=== PATIENT | female | born 1950 | race Caucasian/White ===

== ENCOUNTER 2016-11-22 00:14 | Emergency (ER) | payer OTHER, BC ==
[~2016-11-22 00:14] MED LIST: INSDGI SC; INSUINJ14 SC; LISI10TA PO; PRLSR20 PO; ROSU40TA PO; SERT-234 PO; SITA100T3 PO
[2016-11-22] MEDS ORDERED: DiphenhydrAMINE HCL 50 MG/ML VIAL IV STA (00:32)
[2016-11-22] MEDS ORDERED: METHYLPREDNISOLONE 125 MG VIAL IV STA (00:32)
[2016-11-22] MEDS ORDERED: FAMOTIDINE 20MG/102 ML D5W IV STA (00:32)
--- NOTE | 2016-11-22 00:34 | EMERGENCY ROOM VISIT NOTE ---
History Report prepared by Ning: Ade Mackay Under the Supervision of: Dr. Jose Canales D.O. First contact with patient: 00:21 Chief Complaint: ALLERGIC REACTION Stated Complaint: SWOLLEN TONGUE, LIPS, HARD TO SWALLOW - ALLERGIC R History of Present Illness The patient is a 66 year old female who presents to the Emergency Room with complaints of persistent tongue swelling starting yesterday. She was at Urgent Care yesterday for abdominal pain and she was given new medications. After she took them, her tongue started swelling up. Her lip is also swelling. She called [facility] today and they told her to take Benadryl. She took Benadryl today at 1800 and slept for around 6 hours. When she woke up, her lips were more swollen and tingling. Her tongue is also still swollen. She is able to breathe, but having difficulty swallowing. She has been on Lisinopril for a long time. She took none of her medications today because of her swelling. Source of History: patient Onset: yesterday Position: other (tongue) Quality: other (swelling) Timing: other (persistent) Note: Pt reports lip swelling, difficulty swallowing. Review of Systems See HPI for pertinent positives and negatives. A total of ten systems were reviewed and were otherwise negative. Past Medical & Surgical Medical Problems: (1) DM (diabetes mellitus) (2) GERD (gastroesophageal reflux disease) Family History Diabetes mellitus FH: cancer Hypertension Social History Smoking Status: Never Smoker Marital Status: Housing Status: lives with family Occupation Status: employed Current/Historical Medications Scheduled Insulin Aspart Penfill (Novolog Penfill), 5-6 UNITS SC AC Insulin Glargine (Lantus), 35 UNITS SC HS Lisinopril (Prinivil), 10 MG PO DAILY Omeprazole (Prilosec), 20 MG PO DAILY Rosuvastatin Calcium (Crestor), 40 MG PO DAILY Sertraline (Zoloft), 150 MG PO DAILY Sitagliptin Phosphate (Januvia), 100 MG PO DAILY Allergies Coded Allergies: Ibuprofen (Unverified Allergy, Mild, 03/15/15) Morphine (Unverified Allergy, Mild, 03/15/15) Aspirin (Verified Allergy, Unknown, UNKNOWN, 03/15/15) NSAIDs (Verified Allergy, Unknown, UNKNOWN, 03/15/15) Sulfa Drugs (Unverified Allergy, Unknown, 03/15/15) Physical Exam Vital Signs Date Time Temp Pulse Resp B/P Pulse Ox O2 Delivery O2 Flow Rate FiO2 11/22/16 01:34 65 161/75 98 Room Air 11/22/16 00:48 74 18 157/74 100 Room Air 11/22/16 00:27 100 Room Air 11/22/16 00:21 36.7 87 22 213/106 100 Room Air Physical Exam GENERAL: Awake, alert, well-appearing, in no distress HENT: Normocephalic, atraumatic. Mild angioedema, phonating, swallowing, speaking in full sentences. EYES: Normal conjunctiva. Sclera non-icteric. NECK: Supple. No nuchal rigidity. FROM. No JVD. RESPIRATORY: Clear to auscultation. CARDIAC: Regular rate, normal rhythm. Extremities warm and well perfused. Pulses equal. ABDOMEN: Soft, non-distended. No tenderness to palpation. No rebound or guarding. No masses. RECTAL: Deferred. MUSCULOSKELETAL: Chest examination reveals no tenderness. The back is symmetrical on inspection without obvious abnormality. There is no CVA tenderness to palpation. No joint edema. LOWER EXTREMITIES: Calves are equal size bilaterally and non-tender. No edema. No discoloration. NEURO: Normal sensorium. No sensory or motor deficits noted. SKIN: No rash or jaundice noted. PSYCH: Extremely anxious. Medical Decision & Procedures Laboratory Results Test 11/22/16 00:55 Bedside Glucose 233 mg/dl (70-90) Laboratory results reviewed by me Medications Administered Medications (Trade) Dose Ordered Sig/Jerad Route Start Time Stop Time Status Last Admin Dose Admin Diphenhydramine HCl (Benadryl Inj) 25 mg NOW STAT IV 11/22/16 00:32 11/22/16 00:34 DC 11/22/16 00:41 25 MG Methylprednisolone Sodium Succinate (Solu-Medrol IV) 125 mg NOW STAT IV 11/22/16 00:32 11/22/16 00:34 DC 11/22/16 00:41 125 MG Famotidine (Pepcid 20mg/100 ml) 20 mg ONE STAT IV 11/22/16 00:32 11/22/16 00:34 DC 11/22/16 00:41 20 MG ED Course 0023: The patient was evaluated in room A9B. A complete history and physical exam was performed. 0032: Famotidine 20 mg IV, Solu-Medrol IV 125 mg IV, Benadryl Inj 25 mg IV. 0135: I reevaluated the patient. She is resting comfortably, in no significant distress, no significant angioedema. I discussed results and discharge instructions: she verbalized understanding and agreement. The patient is ready for discharge. Medical Decision Differential diagnoses include but are not limited to; allergic reaction, angioedema, GABRIELLE inhibitor induced angioedema, anxiety. Medication Reconciliation: I attest that I have personally reviewed the patient' s current medication list. Blood pressure screening: Patient was found to have an elevated blood pressure and was referred to their primary doctor for recheck and further treatment. Patient on reexamination resting in no distress blood pressure 160/75 she has no difficulty swallowing and there is no significant angioedema on reexamination. I've also discussed the evaluation with the patient's at bedside Impression Primary Impression: Allergic reaction Scribe Attestation The scribe's documentation has been prepared under my direction and personally reviewed by me in its entirety. I confirm that the note above accurately reflects all work, treatment, procedures, and medical decision making performed by me. Departure Information Dispostion Home / Self-Care Referrals Nathalia Saleh M.D. (PCP) Patient Instructions ED Allergic Reaction General Other, My [facility] Additional Instructions Please stop taking your lisinopril until follow-up with your primary care physician
[2016-11-22 01:57] VITALS: BP 161/75; PULSE 65; TEMP 36.7; O2SAT 98
== END 2016-11-22 01:58 | disposition home or self-care (01) ==
LOC: C.EDB 00:16 → C.EDA 01:58
DX: T78.40XA Allergy, unspecified, initial encounter (principal); X58.XXXA Exposure to other specified factors, initial encounter; Z79.899 Other long term (current) drug therapy; Z79.4 Long term (current) use of insulin; E11.9 Type 2 diabetes mellitus without complications; K21.9 Gastro-esophageal reflux disease without esophagitis; Z83.3 Family history of diabetes mellitus; Z82.49 Family history of ischemic heart disease and other diseases of the circulatory system; Z80.9 Family history of malignant neoplasm, unspecified

== ENCOUNTER 2016-12-20 09:14 | Emergency (ER) | payer OTHER, BC ==
[~2016-12-20] VITALS: Ht 167.6 cm; Wt 80.7 kg
[2016-12-20 09:21] VITALS: TEMP 36.5; Ht 167.6 cm; Wt 80.7 kg
[2016-12-20 09:27] VITALS: O2SAT 100
[2016-12-20] MEDS ORDERED: LORAZEPAM 0.5 MG TAB SL STA (09:42)
[2016-12-20] MEDS ORDERED: NVLG SQ (10:32)
[2016-12-20] MEDS ORDERED: INSDGI SC (10:32)
[2016-12-20] MEDS ORDERED: FAMO20TA11 PO (10:33)
[2016-12-20] MEDS ORDERED: VENL37.593 PO (10:33)
[2016-12-20 11:42] VITALS: BP 135/71; PULSE 70; O2SAT 100
--- NOTE | 2016-12-20 12:31 | EMERGENCY ROOM VISIT NOTE ---
History Report prepared by Ning: Abimbola Rojas Under the Supervision of: Dr. Jasen Parikh M.D. First contact with patient: 09:34 Chief Complaint: ALLERGIC REACTION Stated Complaint: ALLERGIC REACTION Nursing Triage Summary: pt was at dentist received epi and is allergic. reports she shakes with epi denies any sob or throat swelling History of Present Illness The patient is a 66 year old female who presents to the Emergency Room with complaints of constant allergic reaction symptoms from receiving epinephrine that occurred 90 minutes prior to arrival. The patient states that she was at the dentist for a root canal. She saw Dr. Kumar today. She was given 2 shots of epinephrine, which she states she is allergic to. The patient experiences shakes when she is given epinephrine. She states that this happened to her before. She states that she felt good before she went to the dentist. The patient notes that she feels fatigued from the continuous shaking. Pt denies LOC , headache, fevers, chills, diaphoresis, visual changes, neck pain, chest pain, breathing difficulties, nausea, vomiting, abdominal pain, back pain, melena, hematochezia, urinary symptoms, numbness, weakness, cramping, lymphadenopathy, itching, rash, or other complaints. 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 Review of Systems See HPI for pertinent positives and negatives. A total of ten systems were reviewed and were otherwise negative. Past Medical & Surgical Medical Problems: (1) DM (diabetes mellitus) (2) Food impaction of esophagus (3) GERD (gastroesophageal reflux disease) Family History Diabetes mellitus FH: cancer Hypertension Social History Smoking Status: Never Smoker Marital Status: Housing Status: lives with family Occupation Status: employed Current/Historical Medications Scheduled Famotidine (Pepcid), 20 MG PO DAILY Insulin Aspart (Novolog), SQ UD Insulin Glargine (Lantus), 35-40 UNITS SC QPM Lisinopril (Prinivil), 10 MG PO DAILY Rosuvastatin Calcium (Crestor), 40 MG PO DAILY Sertraline (Zoloft), 150 MG PO DAILY Sitagliptin Phosphate (Januvia), 100 MG PO DAILY Venlafaxine Hcl (Venlafaxine Extended Rel), 37.5 MG PO DAILY Allergies Coded Allergies: Ibuprofen (Unverified Allergy, Mild, 12/20/16) Morphine (Unverified Allergy, Mild, 12/20/16) Aspirin (Verified Allergy, Unknown, UNKNOWN, 12/20/16) Caffeine (Unverified Allergy, Unknown, ., 12/20/16) NSAIDs (Verified Allergy, Unknown, UNKNOWN, 12/20/16) Sulfa Drugs (Unverified Allergy, Unknown, 12/20/16) Physical Exam Vital Signs Date Time Temp Pulse Resp B/P (MAP) Pulse Ox O2 Delivery O2 Flow Rate FiO2 12/20/16 11:42 70 20 135/71 100 12/20/16 10:21 71 20 131/89 100 Room Air 12/20/16 09:27 100 Room Air 12/20/16 09:24 82 12/20/16 09:21 36.5 84 22 171/96 98 Room Air Physical Exam GENERAL: Awake, alert, well-appearing, in no distress HENT: Normocephalic, atraumatic. Oropharynx unremarkable. EYES: Normal conjunctiva. Sclera non-icteric. NECK: Supple. No nuchal rigidity. FROM. No JVD. RESPIRATORY: Clear to auscultation. CARDIAC: Regular rate, normal rhythm. Extremities warm and well perfused. Pulses equal. ABDOMEN: Soft, non-distended. No tenderness to palpation. No rebound or guarding. No masses. RECTAL: Deferred. MUSCULOSKELETAL: Chest examination reveals no tenderness. The back is symmetrical on inspection without obvious abnormality. There is no CVA tenderness to palpation. No joint edema. LOWER EXTREMITIES: Calves are equal size bilaterally and non-tender. No edema. No discoloration. NEURO: Normal sensorium. No sensory or motor deficits noted. SKIN: No rash or jaundice noted. PSYCH: Very anxious, uncomfortable appearing. Medical Decision & Procedures Medications Administered Medications (Trade) Dose Ordered Sig/Jerad Route Start Time Stop Time Status Last Admin Dose Admin Lorazepam (Ativan Tab) 0.5 mg NOW STAT SL 12/20/16 09:42 12/20/16 09:43 DC 12/20/16 09:46 0.5 MG ECG Indication: other (allergic reaction) Rate (beats per minute): 80 Rhythm: normal sinus Findings: nonspecific-ST abn Change: no significant change (from 07/09/13) ED Course 0940: The patient was evaluated in room A11. A complete history and physical exam was performed. 0942: Ativan Tab 0.5 mg SL. 1009: I checked on the patient and she is feeling better. 1119: I reevaluated the patient and she is feeling much better, 1124: I reevaluated the patient. Discussed results and discharge instructions: She verbalized understanding and agreement. The patient is ready for discharge. Medical Decision Medication Reconciliation: I attest that I have personally reviewed the patient' s current medication list Patient was found to have a slightly elevated blood pressure due to circumstances. I do not believe that the patient requires hypertension monitoring. Prior records/ancillary studies reviewed. Triage Nursing notes reviewed and agree them. The patient's history was concerning for possible allergic reaction. Differential diagnosis: Etiologies such as adverse reaction, allergic reaction, anaphylaxis, anxiety, as well as others were entertained. Physical examination: As above. No rash or urticaria. Airway patent. ER treatment provided: Continuous cardiac monitoring Ativan 0.5 mg sublingual On reassessment the patient felt better. Diagnostic interpretation by me: ECG revealed a normal rhythm. No change from prior. It appears the patient had an adverse reaction to epinephrine which he said she has had in the past. The above treatment did well to reverse the symptoms. After prolonged monitoring and frequent reassessments the patient did very well and symptoms resolved. By the evaluation outlined above emergent etiologies such as airway compromise, Fernando-Jose syndrome, toxic epidermal necrolysis, erythema multiforme, complications, as well as others were deemed relatively unlikely. The patient was informed about the findings as listed above. All questions were answered and she was pleased with the treatment. Return instructions were outlined and the patient was discharged in stable condition. Outpatient prescription management: None Referral: The patient was referred back to her primary care physician for follow-up in 2- 3 days for a recheck of the current condition. Impression Primary Impression: Adverse reaction to drug Scribe Attestation The scribe's documentation has been prepared under my direction and personally reviewed by me in its entirety. I confirm that the note above accurately reflects all work, treatment, procedures, and medical decision making performed by me. Departure Information Dispostion Home / Self-Care Referrals Nathalia Saleh M.D. (PCP) Forms HOME CARE DOCUMENTATION FORM, IMPORTANT VISIT INFORMATION Patient Instructions My [facility] Additional Instructions DO NOT drive, drink alcohol, operate machinery, or perform dangerous activities today. You were given medications in the ER that can affect your ability to safely function or operate a vehicle. Diphenhydramine(Benadryl) 25mg: use 25 to 50 mg every six hours for swelling, itching, or hives as needed. This medication is sedating and will cause drowsiness. Avoid alcohol, operating machinery or dangerous equipment, working on ladders or roofs, DRIVING, or situations where being under the influence may be dangerous. Continue current medications. Return to the emergency department for worsening of your rash, swelling of your face, lips, tongue, or throat, difficulty breathing, vomiting, or as needed. Follow-up with your primary care physician in 2 to 3 days for a recheck of your current condition.
== END 2016-12-20 11:44 | disposition home or self-care (01) ==
LOC: EDBD 09:14 → C.EDA 09:16
DX: T50.905A Adverse effect of unspecified drugs, medicaments and biological substances, initial encounter (principal); E11.9 Type 2 diabetes mellitus without complications; K21.9 Gastro-esophageal reflux disease without esophagitis; Z79.4 Long term (current) use of insulin; Z79.899 Other long term (current) drug therapy; Z88.2 Allergy status to sulfonamides; Z88.5 Allergy status to narcotic agent; Z88.6 Allergy status to analgesic agent; Z88.8 Allergy status to other drugs, medicaments and biological substances; Z83.3 Family history of diabetes mellitus; Z80.9 Family history of malignant neoplasm, unspecified; Z82.49 Family history of ischemic heart disease and other diseases of the circulatory system

== ENCOUNTER 2018-12-17 13:19 | Observation (INO) ==
--- OUTSIDE RECORDS SUMMARY | 2018-12-17 13:22 | External Medical Summary | Continuity of Care Document ---
:1950 Author Name Doni Hitchcock Address Unavailable Unavailable , Care Team Providers Name Role Phone Baudilio Andrade [email or web address] [place], NO Unavailable Unavailable Unavailable Unavailable Unavailable Assessments Assessed Problems:Cystocele, midlineRectoceleDepressionHypercholesterolemiaType 2 diabetes mellitusMenopausal symptoms Problems Rectocele (618.04) (N81.6) Hypercholesterolemia (272.0) (E78.00) Cystocele, midline (618.01) (N81.11) Menopausal symptoms (627.2) (N95.1) Depression (311) (F32.9) Type 2 diabetes mellitus (250.00) (E11.9) Allergies and Adverse Reactions Aspirin TABS (Allergy) Sulfa Drugs (Allergy) Medications Januvia TABS Refills: 0 Zoloft TABS Refills: 0 Crestor 10 MG Oral Tablet Refills: 0 Lisinopril TABS Refills: 0 Lantus SOLN Refills: 0 NovoLOG SOLN Refills: 0 Premarin 0.3 MG Oral Tablet; one tablet by mouth daily as directed by Coretta Persaud Start: 29-Oct-2012 Quantity: 30 Refills: 12 Procedures History of Total Abdominal Hysterectomy With Removal Of Both Status: Completed Ovaries History of Appendectomy Status: Complete d History of Cholecystectomy Status: Compl eted History of Cardiovascular Stress Test St atus: Completed Immunizations Immunizations not documented Social History - Smoking Status Never smoker Interventions Medication ChangesPremarin 0.3 MG Oral Tablet - Start Plan of Treatment Planned Observations Planned Goals not documented Results No Known Results Results not documented Encounters Appointment; Steven Andrade M.D. 29-Oct-2012 10:00 Encounter Diagnosis: Problem not documented
[2018-12-17] MEDS ORDERED: DEXTROSE 50% 50 ML SYRINGE IV STA (13:29)
[2018-12-17 13:41] LABS: Basophils # (auto) 0.04 K/uL (0-0.2); Basophils % (auto) 0.4 %; Eosinophils # (auto) 0.18 K/uL (0-0.5); Hematocrit (blood only) 40.4 % (37-47); Hemoglobin 13.9 g/dL (12.0-16.0); Immature Granulocytes # (auto) 0.03 K/uL (0.00-0.02); Immature Granulocytes % (auto) 0.3 %; Lymphocytes # (auto) 2.05 K/uL (1.2-3.4); Lymphocytes % (auto) 22.9 %; Mean Corpuscular Hgb Conc 34.4 g/dL (32-36); Mean Corpuscular Volume 84.2 fL (80-100); Mean Platelet Volume 10.9 fL (7.4-10.4); Monocytes # (auto) 0.55 K/uL (0.11-0.59); Monocytes % (auto) 6.1 %; Neutrophils # (auto) 6.11 K/uL (1.4-6.5); Neutrophils % (auto) 68.3 %; Platelet Count 236 K/uL (130-400); RDW Coefficient of Variation 13.3 % (11.5-14.5); RDW Standard Deviation 40.4 fL (36.4-46.3); White Blood Count 8.96 K/uL (4.8-10.8)
[2018-12-17 13:52] LABS: Partial Thromboplastin Ratio 0.9; Partial Thromboplastin Time 23.7 Seconds (21.0-31.0); Prothrombin Time 9.8 Seconds (9.0-12.0)
[2018-12-17 13:57] LABS: Alanine Aminotransferase 13 U/L (12-78); Albumin Level 3.9 gm/dl (3.4-5.0); Aspartate Aminotransferase 8 U/L (15-37); BUN Creatinine Ratio 25.8 (10-20); Blood Urea Nitrogen 18 mg/dl (7-18); Calcium 9.6 mg/dl (8.5-10.1); Carbon Dioxide 25 mmol/L (21-32); Chloride 104 mmol/L (98-107); Creatinine Clr Calc Pharmacy 81.7 ml/min; Est GFR (African American) 102.2; Est GFR (Non-African American) 88.2; Glucose 86 mg/dl (70-99); Potassium 2.9 mmol/L (3.5-5.1); Sodium 138 mmol/L (136-145)
[2018-12-17] MEDS ORDERED: ASPIRIN 81 MG ECTAB PO STA (14:00)
[2018-12-17 14:02] LABS: Albumin Globulin Ratio 1.1 (0.9-2); Alkaline Phosphatase 107 U/L (45-117); Bilirubin,Total 0.5 mg/dl (0.2-1); Globulin 3.6 gm/dl (2.5-4.0); Total Protein 7.5 gm/dl (6.4-8.2); Troponin I < 0.015 ng/ml (0-0.045)
--- NOTE | 2018-12-17 14:03 | Pre Anesthesia Assessment ---
Date of Service December 17, 2018 Pre Sedation Assessment Vital Signs Temp Pulse Resp BP Pulse Ox 12/17/18 13:46 71 23 144/77 H 99 12/17/18 13:34 36.7 C 74 22 133/67 99 12/17/18 13:32 99 Cardiovascular + regular rate and + regular rhythm + S1 normal, + S2 normal and + murmur (Grade 1/6 systolic); no gallop and no rub no JVD Respiratory normal respiratory effort, lungs clear to auscultation Pre-Sedation Airway Assessment Smoking Status: Never smoker Hx Sleep Apnea: No Hx Difficult Intubation: No Short, Thick Neck: No Mallampati Class: II NPO Status Date of Last Intake of Fluids: 12/17/18 Time of Last Intake of Fluids: 07:00 Last Oral Intake of Fluids Comment: Sips with meds Date of Last Intake of Solid Food: 12/16/18 Time of Last Intake of Solid Foods: 20:02 Notes The planned sedation has been discussed with the patient. Informed Consent was obtained. I have identified the patient, determined the appropriateness of sedation and have assessed the patient immediately prior to the procedure. All medicine(s) and interventions are by my order.
--- NOTE | 2018-12-17 14:07 | XRay Report ---
XR chest 1V portable CLINICAL HISTORY: 68 years-old Female presenting with Chest Pain. TECHNIQUE: Portable upright AP view of the chest was obtained. COMPARISON: 03/15/2015. FINDINGS: Atherosclerosis of the aortic arch. Cardiac silhouette normal in size. Bandlike opacity at the left l shabnam base. No other focal opacity. No large effusion or pneumothorax. Degenerative changes of the thor acic spine. Upper abdomen normal. IMPRESSION: 1. Left basilar atelectasis or scarring. No convincing evidence of acute cardiopulmonary disease. Electronically signed by: Rodrick Reis M.D. 12/17/2018 2:05 PM
[2018-12-17] MEDS ORDERED: NiCARDipine HCL INJ 2.5 MG/ML 10 ML AMP ONE (14:12)
[2018-12-17] MEDS ORDERED: fentaNYL citrate 100 MCG/2 ML VIAL ONE (14:12)
[2018-12-17] MEDS ORDERED: MIDAZOLAM HCL 1 MG/ML 2ML VIAL ONE (14:12)
[2018-12-17] MEDS ORDERED: HEPARIN (PORCINE) 1000 UNIT/ML 10 ML (CATH LAB USE ONLY) ONE (14:12)
--- NOTE | 2018-12-17 14:12 | Cardiology Consultation ---
Date of Consultation December 17, 2018 Assessment & Plan (1) Abnormal cardiovascular stress test: Patient was per HPI had substantially abnormal stress testing today with the EKG and symptoms relieved by nitroglycerin. Patient results were discussed and options for management discussed in detail. She is anxious to proceed with further diagnostic imaging as soon as possible given per increasing symptomatic pattern and abnormal stress testing at very low level workload I recommend a diagnostic cardiac catheterization. No contraindications to proceeding today. Procedure and risks explained in detail with the patient including risks of cardiac catheterization and if indicated to coronary intervention. Patient agreeable informed consent obtained additional aspirin administered IV fluids will be begun. Further recommendations pending the results of above testing. (2) Dyspnea on exertion: (3) HTN (hypertension): (4) Dyslipidemia: History of Present Illness Reason for Consultation: Abnormal stress test, exertional dyspnea Requesting Physician: Dr. Grayson History of Present Illness Nneka Ferrer is a 68 year old year old female with past medical history of type 2 diabetes mellitus, hypertension, and dyslipidemia who recently been seen in outpatient cardiology consultation by Vince BARKLEY of our practice on 11/08/2018 due to complaints of recent exertional chest discomfort, with findings of abnormal EKG, with age undetermined septal/anterior infarction pattern noted on recent EKG. 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 No atrial fibrillation was noted. Low-dose metoprolol 12.5 milligrams daily recommended. She subsequently presented for an exercise stress echocardiogram today. Exercise was terminated after 3 minutes and 56 seconds due to symptoms sugges tive angina including exertional shortness of breath, and market EKG changes including 2+ millimeter horizontal and downsloping ST depression in the inferior and lateral leads, and 1.[address]-elevation in leads aVR and V1. The patient's symptoms and EKG changes resolved in the post exercise recovery interval after the administration of 1 dose of sublingual nitroglycerin. The resting wall motion was normal, with a new moderate-sized left ventricular wall motion abnormality noted on the post exercise images encompassing the apical infero septum, apex, and apical inferior segment with appropriate augmentation the remaining myocardial segments Patient is referred urgently to the emergency room patient asymptomatic currently other than anxiety. She has been noting symptoms of exertional dyspnea for several weeks as it has been under significant amount of emotional stress. Notes no syncope or near syncope. Notes no history rheumatic fever scarlet fever renal or hepatic disease other than prior history of renal lithiasis. Notes sleep disruption at times. Notes no acute weight loss or gain. Notes no bleeding difficulties or planned surgeries. Notes no history of TIA or stroke. Exercise tolerance is generally good most recently has been a limited by exertional dyspnea. Patient notes she is sensitive to sedation notes no prior complications with contrast dye administration Allergies Allergy/AdvReac Type Severity Reaction Status Date / Time ibuprofen Allergy Severe Gastrointestinal Unverified 12/17/18 14:18 Upset Sulfa (Sulfonamide Allergy Severe Hives Unverified 12/17/18 14:18 Antibiotics) aspirin Allergy Unknown UNKNOWN Verified 12/17/18 14:18 caffeine Allergy Unknown . Unverified 12/17/18 14:18 morphine Allergy Unknown Unknown Unverified 12/17/18 14:18 NSAIDS (Non-Steroidal Allergy Unknown UNKNOWN Verified 12/17/18 14:18 Anti-Inflamma epinephrine AdvReac Severe pounding Unverified 12/17/18 14:18 heart Home Medications Home Medications Medication Instructions Recorded Confirmed Type aspirin 81 mg PO UD 12/17/18 12/17/18 History hydrochlorothiazide 12.5 mg PO DAILY 12/17/18 12/17/18 History insulin detemir U-100 [Levemir 30 unit SUBCUT HS 12/17/18 12/17/18 History U-100 Insulin] ranitidine HCl 75 mg PO UD 12/17/18 12/17/18 History sertraline 50 mg PO DAILY 12/17/18 12/17/18 History sertraline 100 mg PO DAILY 12/17/18 12/17/18 History sitagliptin [Januvia] 100 mg PO DAILY 12/17/18 12/17/18 History Patient History Social History Feels Safe at Home: Yes Smoking Status: Never smoker Physical Exam Constitutional: WD/WN, vitals as above Eyes: PERRL, conjunctivae normal, anicteric sclerae ENMT: Mallampati Class: II Neck: trachea midline, no thyromegaly Respiratory: normal respiratory effort, lungs clear to auscultation Cardiovascular: Rate/Rhythm: regular rate and regular rhythm Heart Sounds: normal S1, normal S2 and + murmur (Grade 1/6 systolic); no gallop and no cardiac rub Vessels: no JVD, no carotid bruit, no abdominal aortic bruit and no femoral bruit Extremities: no edema Gastrointestinal (Abdomen): normal bowel sounds, soft, nontender, no hepatosplenomegaly Inspection/Auscultation: abdomen normal to inspection P ercussion/Palpation: no abdominal mass and no abdominal aortic enlargement Musculoskeletal: no cyanosis or clubbing, extremities motor strength 5/5 Neurologic: PERRL, EOMI, accommodation nl, no face palsy, no dysarthria Psychiatric: A+Ox3, euthymic affect Mood: + anxious mood Results & Data Vital Signs (Past 12 Hours) Vital Signs Temp Pulse Resp BP Pulse Ox 12/17/18 13:46 71 23 144/77 H 99 12/17/18 13:34 36.7 C 74 22 133/67 99 12/17/18 13:32 99 Laboratory Results Laboratory Results - last 24 hr 12/17/18 12/17/18 12/17/18 13:30 13:30 13:30 WBC 8.96 RBC 4.80 Hgb 13.9 Hct 40.4 MCV 84.2 MCH 29.0 MCHC 34.4 RDW Std Deviation 40.4 RDW Coeff of Abbie 13.3 Plt Count 236 MPV 10.9 H Immature Gran % (Auto) 0.3 Neut % (Auto) 68.3 Lymph % (Auto) 22.9 Bollinger % (Auto) 6.1 Eos % (Auto) 2.0 Baso % (Auto) 0.4 Immature Gran # (Auto) 0.03 H Neut # (Auto) 6.11 Lymph # (Auto) 2.05 Bollinger # (Auto) 0.55 Eos # (Auto) 0.18 Baso # (Auto) 0.04 PT 9.8 INR 1.0 APTT 23.7 PTT Ratio 0.9 Sodium 138 Potassium 2.9 L Chloride 104 Carbon Dioxide 25 Anion Gap 9.0 BUN 18 Creatinine 0.69 Est Cr Clr Drug Dosing 81.7 Est GFR ( Amer) 102.2 Est GFR (Non-Af Amer) 88.2 BUN/Creatinine Ratio 25.8 H Glucose 86 Calcium 9.6 Phosphorus 2.0 L Magnesium 2.0 Total Bilirubin 0.5 AST 8 L ALT 13 Alkaline Phosphatase 107 Troponin I < 0.015 Total Protein 7.5 Albumin 3.9 Globulin 3.6 Albumin/Globulin Ratio 1.1 Lipase 93 Diagnostic Findings The examination is adequate to evaluate the referral indication. STRESS STUDY: The stress echo is positive for inducible ischemia. The exercise test was terminated due to symptoms of shortness of breath and fatigue at a low level of exercise, with associated marked EKG abnormalities consistent with ischemia. The resting left ventricular wall motion was normal. There is a moderate sized apical and inferior wall motion abnormality with hypokinesis of the segments noted on the post exercise images with appropriate augmentation of the remaining myocardial segments. The patient's symptoms were relieved post exercise after administration of sublingual nitroglycerin x1. EKG reverted to the preprocedure baseline by 13 minutes into the post exercise recovery interval. RESTING STUDY: The qualitative LV ejection fraction is 55-59% (normal). There is no significant valvular heart disease noted on the resting study.
--- NOTE | 2018-12-17 14:13 | Cardiology Consultation ---
Date of Consultation December 17, 2018 Assessment & Plan (1) Unstable angina pectoris: Patient was seen by the undersigned at [facility] and referred to the emergency room. she is to be reassessed by Dr. Btuts who was covering hospital upon arrival. I did follow-up on her EKG through the computer system, with noted stable findings on follow-up EKG as noted above. Tentative plan is for clinical reassessment upon arrival to the hospital in for consideration cardiac catheterization either today, or within the next 24 hours. (2) HTN (hypertension): Patient is already treated with hydrochlorothiazide on a chronic basis outside hospital. New metoprolol succinate 12.5 milligrams risk recently added on 12/03/2018, and this will be titrated GABRIELLE-inhibitor or angiotensin receptor dario will be added as tolerated. (3) Dyslipidemia: Recent significant dyslipidemia noted with total cholesterol 275 LDL cholesterol 209. Statin therapy will be initiated hospitalized. History of Present Illness History of Present Illness Nneka Ferrer is a 68 year old year old female with past medical history of type 2 diabetes mellitus, hypertension, and dyslipidemia who recently been seen in outpatient cardiology consultation by Vince BARKLEY of our practice on 11/08/2018 due to complaints of recent exertional chest discomfort, with findings of abnormal EKG, with age undetermined septal/anterior infarction pattern noted on recent EKG. 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 No atrial fibrillation was noted. Low-dose metoprolol 12.5 milligrams daily recommended. She subsequently presented for an exercise stress echocardiogram today. Exercise was terminated after 3 minutes and 56 seconds due to symptoms suggestive angina including exertional shortness of breath, and market EKG changes including 2+ millimeter horizontal and downsloping ST depression in the inferior and lateral leads, and 1.[address]-elevation in leads aVR and V1. The patient's symptoms and EKG changes resolved in the post exercise recovery interval after the administration of 1 dose of sublingual nitroglycerin. The resting wall motion was normal, with a new moderate-sized left ventricular wall motion abnormality noted on the post exercise images encompassing the apical infero septum, apex, and apical inferior segment with appropriate augmentation the remaining myocardial segments. The patient was seen for acute cardiology follow-up after the conclusion of the test. Her symptoms had resolved. Her , Cain, who was a patient that I have followed for years has been very ill recently with a progressive nonischemic cardiomyopathy, and severe orthostatic hypotension. He was hospitalized over the weekend due to his ongoing orthostatic hypotension symptoms as well as a fever and ongoing evaluation is in progress. Mrs. Ferrer provides care for him home, and also performs multiple duties at home including cleaning the house, maintaining the outside including maintaining the lawn, and cooks. She is under a great deal of psychological and emotional stress. Allergies Allergy/AdvReac Type Severity Reaction Status Date / Time ibuprofen Allergy Severe Gastrointestinal Unverified 12/17/18 14:08 Upset Sulfa (Sulfonamide Allergy Severe Hives Unverified 12/17/18 14:08 Antibiotics) aspirin Allergy Unknown UNKNOWN Verified 12/17/18 14:08 caffeine Allergy Unknown . Unverified 12/17/18 14:08 morphine Allergy Unknown Unknown Unverified 12/17/18 14:08 NSAIDS (Non-Steroidal Allergy Unknown UNKNOWN Verified 12/17/18 14:08 Anti-Inflamma Patient History Social History Feels Safe at Home: Yes Smoking Status: Never smoker Review of Systems Review of Systems: All systems reviewed & are unremarkable except as noted in HPI & below Physical Exam Physical Exam: Temp Pulse Resp BP Pulse Ox 36.7 C 71 23 144/77 H 99 12/17/18 13:34 12/17/18 13:46 12/17/18 13:46 12/17/18 13:46 12/17/18 13:46 General: no acute distress and stated age Eyes: conjunctiva are pink and non-injected, sclera clear Neck: normal jugular venous pulse, no hepatojugular reflux Chest: normal shape and normal respiratory effort Lungs: clear to auscultation and percussion Cardiac Exam: - regular heart sounds, no murmurs, rubs, or gallops Abdomen: abdomen soft, non-tender, no abnormal masses and no hepatosplenomegaly Musculoskeletal: no gait disturbance, no weakness Extremities: no edema and no cyanosis Neuro: grossly normal exam Psych: appropriate affect and insight. Results & Data Vital Signs (Past 12 Hours) Vital Signs Temp Pulse Resp BP Pulse Ox 12/17/18 13:46 71 23 144/77 H 99 12/17/18 13:34 36.7 C 74 22 133/67 99 12/17/18 13:32 99 Diagnostic Findings Stress echo as noted above. Repeat EKG performed on arrival to the emergency room revealed sinus rhythm with age undetermined anterior infarction pattern, the previous ST segment changes had resolved.
[2018-12-17] MEDS ORDERED: D5W AND 1/2NSS 1,000 ML IV SCH (14:15)
--- NOTE | 2018-12-17 14:16 | Emergency Department Note ---
ED Visit Note I assisted Dr. Dowell in the care of this patient. Please attending note for more details. . Resident Activity Tracking Resident Involvement: Resident Care Provided Care Provided: Adult ED
[2018-12-17] MEDS ORDERED: ASPIRIN 81 MG CHEW ONE (14:19)
[2018-12-17] MEDS ORDERED: POTASSIUM CHLORIDE 10 MEQ / 100ML WTR IV ONE (14:31)
--- NOTE | 2018-12-17 15:10 | Cardiac Catheterization ---
Cardiac Cath Procedure: Brief Procedure Date December 17, 2018 Pre-Procedure Diagnosis Pre-Procedure Diagnosis: Angina and Positive Stress Test AUC Score AUC Score: 7 Post-Procedure Diagnosis Post-Procedure Diagnosis: Severe CAD (LAD occlusion, branch vessel circumflex disease) Procedure(s) Performed Procedure(s) Performed: Coronary Angiography, Left Heart Cath and LV Angiography Hydrometeorologist Percy Butts MD Estimated Blood Loss Estimated Blood Loss: <15cc Medication(s) Medication(s): Fentanyl (5 mcg IV), Heparin (5000 units IV), Lidocaine 1% (Local infiltration access site), Nicardipine (250 mcg intra-arterial after arterial sheath insertion) and Versed (1 mg IV) Preliminary Findings Right dominant coronary anatomy with moderate diffuse atherosclerosis all vessels Left main: Long and bifurcating free of disease Left anterior descendin% occlusion after first diagonal with very faint collateral fill Left anterior descending diagonal: Moderate caliber and bifurcating with long 60% proximal Left circumflex: Nondominant with moderately large first marginal moderate caliber second marginal and a large bifurcating third marginal. There is moderate diffuse atherosclerosis. The origin of the second small to moderate caliber marginal has a discrete 80% narrowing at its ostium Right coronary artery: Large and dominant with 40% proximal and distal. PDA 80% stenosis in the very distal thin caliber segment LV angiography: EF 65% trace mitral insufficiency Recommendations Recommendations: PCI without planned CABG Specimens Specimens: None Fluids (cc crystalloids) Fluids (cc crystalloids): 70 Anesthesia Start time: 1432, stop time: 1456 Procedural Complication(s) None Disposition PCU
--- NOTE | 2018-12-17 15:36 | Cardiac Catheterization ---
Cardiac Cath Procedure Full Procedure Date December 17, 2018 Pre-Procedure Diagnosis Pre-Procedure Diagnosis: Angina and Positive Stress Test AUC Score AUC Score: 7 Post-Procedure Diagnosis Post-Procedure Diagnosis: Severe CAD (LAD occlusion, branch vessel circumflex disease) Procedure(s) Performed Procedure(s) Performed: Coronary Angiography, Left Heart Cath and LV Angiography Environmental Health Officer Percy Butts MD Asset Availability Leader(s) Scout Estimated Blood Loss Estimated Blood Loss: <15cc Medication(s) Medication(s): Fentanyl (5 mcg IV), Heparin (5000 units IV), Lidocaine 1% (Local infiltration access site), Nicardipine (250 mcg intra-arterial after arterial sheath insertion) and Versed (1 mg IV) Summary of Findings Right dominant coronary anatomy with moderate diffuse atherosclerosis all vessels Left main: Long and bifurcating free of disease Left anterior descendin% occlusion after first diagonal with very faint collateral fill Left anterior descending diagonal: Moderate caliber and bifurcating with long 60% proximal Left circumflex: Nondominant with moderately large first marginal moderate caliber second marginal and a large bifurcating third marginal. There is moderate diffuse atherosclerosis. The origin of the second small to moderate caliber marginal has a discrete 80% narrowing at its ostium Right coronary artery: Large and dominant with 40% proximal and distal. 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 Patient was referred for stress echocardiography same day of diagnostic cardiac catheterization with patient developing typical anginal equivalent exertional dyspnea and chest pressure at very low level workload with associated EKG and echocardiographic ischemia with extensive anteroseptal and apical ischemia. She is referred for hospitalization and subsequent cardiac catheterization CAD Presenation: Unstable angina Anginal Classification: CCS III Heart Failure: No Cardiogenic Shock within 24 Hours: No Cardiac Arrest within 24 Hours: No Imaging Studies Past 6 Months: Yes Stress Studies Past 6 Months: Yes Standard Exercise Test: No Stress Echocardiogram: Yes - Positive and Risk/Extent of Ischemia (High) Stress Testing w/SPECT MPI: No Cardiac CTA: No Coronary Anatomy Dominant: Right Left Main (% Stenosis): Normal LAD (% Stenosis): Mid (100 immediately after first diagonal) D1 (% Stenosis): Proximal (60) D2 (% Stenosis): Normal D3 (% Stenosis): Normal Circumflex (% Stenosis): Mid (30) OM1 (% Stenosis): Normal OM2 (% Stenosis): Proximal (80) OM3 (% Stenosis): Normal (30) RCA (% Stenosis): Proximal (40) and Distal (50) R PDA (% Stenosis): Distal (80, thin caliber vessel) Left Ventricular Angiography EF (%): 65 Diagnostic Physicians Name: Percy Butts MD Closure Device Percutaneous Entry Location: Radial Recommendations: PCI without planned CABG
[2018-12-17] MEDS ORDERED: TICAGRELOR 90 MG TAB PO ONE (15:38)
[2018-12-17] MEDS ORDERED: ACETAMINOPHEN 325 MG TAB PO PRN (15:46)
[2018-12-17] MEDS ORDERED: ONDANSETRON INJ 2 MG/ML 2 ML VIAL IV PRN (15:46)
--- NOTE | 2018-12-17 15:56 | Post Anesthesia Assessment ---
Date of Service December 17, 2018 Post Sedation Assessment Vital Signs Temp Pulse Resp BP Pulse Ox 12/17/18 14:01 69 21 114/78 100 12/17/18 13:46 71 23 144/77 H 99 12/17/18 13:34 36.7 C 74 22 133/67 99 12/17/18 13:32 99 Recovery Score Activity: Moves 4 extremities Respiration: Deep Breath/Cough Circulation: +/-20% PreAnes Value Consciousness: Fully Awake Oxygen Saturation: O2 needed for >90% Discharge Sedation Level of Care: Fast Track Phase II Post Sedation Plan On clinical assessment, the patient appears to have tolerated the sedation without complications. Patient is recovering as anticipated. Patient will continue to be monitored by nursing and may be discharged when sedation discharge criteria are met per below protocol. Upon Completions of procedure and additional 15 minutes continue every 5 minute vital signs and the P.A.R. score; then discharge to a Phase I or Fast Track to Phase II per the following guidelines: * Discharge Patient to appropriate Phase II area if PAR is 8 or greater or return to pre- procedure baseline. The post - procedure orders will be as directed. * If PAR score is less than 8 or not return to pre-procedure baseline then patient will follow Phase I monitoring till PAR is reached for Phase II. The Phase I may be done in procedure room or may call to secure a Phase I area. * If naloxone or flumazenil are used for reversal, hold in Phase I for continued monitoring from when last reversal dose was given for a minimum of 60 minutes or longer pending the nurse and/or physician discretion of patient condition before discharge to Phase II. Please call the Sedation Physician to re-evaluate and complete post-note for discharge to Phase II area. Do NOT discharge from procedure sedation or Phase 1 until post- sedation evaluation note is complete by procedure /sedation MD Sedation Discharge Instructions to be given to the patient at discharge to home.
[2018-12-17] MEDS ORDERED: SODIUM CHLORIDE 0.9% 1000ML 1,000 ML IV SCH (16:00)
--- NOTE | 2018-12-17 16:03 | Cardiac Catheterization ---
Cardiac Cath Procedure Full Procedure Date December 17, 2018 Pre-Procedure Diagnosis Pre-Procedure Diagnosis: Angina and Positive Stress Test AUC Score AUC Score: 7 Post-Procedure Diagnosis Post-Procedure Diagnosis: Severe CAD (LAD occlusion, branch vessel circumflex disease) and Successful PCI Procedure(s) Performed Procedure(s) Performed: Coronary Angiography and Drug Eluting Stent Metal Model Maker Tarik Curiel MD Home Therapy Teacher(s) Jevon Estimated Blood Loss Estimated Blood Loss: <15cc Medication(s) Medication(s): Fentanyl (5 mcg IV), Heparin (5000 units IV), Nicardipine (250 mcg intra-arterial after arterial sheath insertion), Nitroglycerin and Versed (1 mg IV) Medication(s): Ticagrelor Summary of Findings Indication: Abnormal stress test, accelerating angina Access: 6 Fr right radial artery Catheters: EBU 3.5 guide Findings: For full details of patient's coronary angiography please cath report dictated by Dr. Butts. Briefly, patient found to have severe single vessel disease involving an occluded mid LAD. Decision to proceed with PCI. -- PCI -- Antithrombotic therapy: Heparin, ticagrelor Procedure: Left main cannulated with EBU 3.5 guide Long whisper wire passed across mid LAD occlusion Distal intravascular position confirmed via injection through OTW balloon Mid LAD lesion predilated with 1.5 and 2.5 compliant balloons Dilated lesion stented with 2.5 x 22 mm [place] drug-eluting stent Stent post-dilated with 2.5 noncompliant balloon IC vasodilators administered for spasm Post procedure ANJEL 3 flow, stent well expanded with minimal residual stenosis and no apparent cardiac complications. Diffuse latemid and distal disease downstream from stent. Arterial Closure: TR band Summary: 1. Successful PCI of subacute 100% mid LAD occlusion with single drug-eluting stent (2.5 x 22 mm [place]). 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 Cardiac Status Clinical evaluation leading to the procedure CAD Presenation: Unstable angina Anginal Classification: CCS III Heart Failure: No Cardiogenic Shock within 24 Hours: No Cardiac Arrest within 24 Hours: No Imaging Studies Past 6 Months: Yes Stress Studies Past 6 Months: Yes Stress Echocardiogram: Yes - Positive and Risk/Extent of Ischemia (High) Diagnostic Physicians Name: Tarik Curiel MD Status: Urgent Closure Device Percutaneous Entry Location: Radial Closure Device: Radial Band Recommendations: PCI without planned CABG PCI Indication: + Stress Test Lesion Segment Name: mid LAD Culprit Artery: Yes Stenosis Prior to Rx (%): 100 Chronic Total Occlusion: No IVUS: No FFR: No Pre-Procedure ANJEL Flow: 0 Previously Treated Lesion: No Lesion Complexity: Non-High/Non-C Lesion Length (mm): 20 Thrombus Present: Yes Bifurcation Lesion: No Guidewire Across Lesion: Stenosis Post-Procedure (%): 0 Post-Procedure ANJEL Flow: 3 Devices(s) Deployed: Yes Yes Intraprocedure Events Significant Disection: No Perforation: No
[2018-12-17] MEDS: PANTOprazole 40 MG TAB PO SCH (17:00)
--- NOTE | 2018-12-17 17:04 | History & Physical Report ---
Date of Service December 17, 2018 Assessment & Plan (1) Unstable angina pectoris: (2) Abnormal cardiovascular stress test: Was sent from cardiology clinic after abnormal exercise stress echo Status post cardiac cath that showed 100% LAD occlusion Successful PCI of subacute 100% mid LAD occlusion with single drug-eluting stent Continue dual-antiplatelet therapy for at least one year with aspirin 81 mg and ticagrelor 90 mg twice daily Cardiology on board Case discussed with Dr. Butts recommend to start on Crestor 20 mg daily Continue metoprolol 12.5 mg daily Consult cardiac Rehab Continue monitor in telemetry (3) HTN (hypertension): BP stable Continue metoprolol 12.5 mg daily Resume HCTZ tomorrow after lab due to recent cardiac cath We will monitor BP (4) Dyslipidemia: Will start on low-dose statin Check lipid panel in a.m. (5) DM (diabetes mellitus): Recent hemoglobin A1c 8.7 on 10/12 We will hold oral diabetic meds Continue outpatient Levemir dose Will add on insulin sliding scale Monitor BS DVT px will add on sub heparin in am CODE STATUS FULL CODE History of Present Illness Chief Complaint: Abnormal stress test Primary Care Provider: Nathalia Saleh MD 68-year-old female with past medical history of type 2 diabetes, hypertension, dyslipidemia, osteoarthritis, major depressive disorder, esophageal reflux was sent from cardiology clinic after abnormal exercise stress echo. Patient said that lately she was having on and off exertional chest discomfort associated with shortness of breath. She had an EKG done as an outpatient back in October that was abnormal. She had a ZIo bus monitor that showed 4 beat run of nonsustained ventricular tachycardia and several short run of supraventricular tachycardia. She said that she was then scheduled for exercise stress echo today. Exercise stress echo was stopped after about 4 minutes due to symptoms suggestive of angina including exertional shortness of breath, chest pressure and EKG changes with ST depression in the inferior and lateral lead and ST elevation in leads aVR and V1. She was transferred to the ER and for cardiac cath. Cardiac cath done today showed 100% occlusion of the LAD and single drug- eluting stent placed. Currently patient said that she feels fine. Currently denies any chest pain, palpitation, dizziness, shortness of breath, weakness and numbness. Allergies Allergy/AdvReac Type Severity Reaction Status Date / Time ibuprofen Allergy Severe Gastrointestinal Unverified 12/17/18 14:18 Upset Sulfa (Sulfonamide Allergy Severe Hives Unverified 12/17/18 14:18 Antibiotics) aspirin Allergy Unknown UNKNOWN Verified 12/17/18 14:18 caffeine Allergy Unknown . Unverified 12/17/18 14:18 morphine Allergy Unknown Unknown Unverified 12/17/18 14:18 NSAIDS (Non-Steroidal Allergy Unknown UNKNOWN Verified 12/17/18 14:18 Anti-Inflamma epinephrine AdvReac Severe pounding Unverified 12/17/18 14:18 heart Home Medications Home Medications Medication Instructions Recorded Confirmed Type Klor-Con 10 1 tab PO DAILY 12/17/18 12/17/18 History Nasal [place] (sodium chloride) 2 spray INTRANASAL BID PRN 12/17/18 12/17/18 History aspirin 81 mg PO UD 12/17/18 12/17/18 History cholecalciferol (vitamin D3) 1 cap PO DAILY 12/17/18 12/17/18 History famotidine 1 tab PO DAILY 12/17/18 12/17/18 History hydrochlorothiazide 12.5 mg PO DAILY 12/17/18 12/17/18 History insulin aspart U-100 6 units SC TID 12/17/18 12/17/18 History insulin detemir U-100 [Levemir 30 unit SUBCUT HS 12/17/18 12/17/18 History U-100 Insulin] metoprolol succinate 12.5 mg PO DAILY 12/17/18 12/17/18 History sertraline 100 mg PO DAILY 12/17/18 12/17/18 History sitagliptin [Januvia] 100 mg PO DAILY 12/17/18 12/17/18 History Past Med/Surg History Medical History Dyspnea on exertion Abnormal cardiovascular stress test Dyslipidemia HTN (hypertension) Unstable angina pectoris Food impaction of esophagus (Acute) GERD (gastroesophageal reflux disease) (Chronic) DM (diabetes mellitus) (Chronic) Abdominal pain (Acute) Headache (Acute) Adverse reaction to drug (Acute) Food impaction of esophagus (Resolved) No pertinent family history Surgical History No pertinent past surgical history Family History Other No pertinent family history Social History Preferred Language: Bulgarian Communication Ability: Effective Visual Impairment: No Limitations Hearing Ability: Normal Beliefs That Will Affect Care: None marital status: marital status details: Current Living Situation: Spouse Feels Safe at Home: Yes Smoking Status: Never smoker Hx Alcohol Use: No Hx Substance Use: No Review of Systems Review of Systems: All systems reviewed & are unremarkable except as noted in HPI & below Physical Exam Physical Exam: General- No acute distress Head- atraumatic Eyes- PERRL, EOMI, ENT- oropharynx clear Neck- supple, no JVD Lungs- clear to auscultation Heart- regular rhythm; no murmur Abdomen- normal bowel sounds, soft, nontender Extremities- no calf tenderness, right wrist area with minimal blood from the area of the cardiac cath wire. Neuro- alert, oriented x 3; PERRL, EOMI; no facial palsy; no dysarthria Skin- warm & dry Results & Data Vital Signs (Past 12 Hours) Vital Signs Temp Pulse Pulse Pulse Resp BP BP 12/17/18 16:16 62 62 18 113/73 12/17/18 16:13 64 16 129/75 12/17/18 16:06 36.3 C L 65 18 126/71 12/17/18 14:01 69 21 114/78 12/17/18 13:46 71 23 144/77 H 12/17/18 13:34 36.7 C 74 22 133/67 12/17/18 13:32 Pulse Ox 12/17/18 16:16 99 12/17/18 16:13 100 12/17/18 16:06 100 12/17/18 14:01 100 12/17/18 13:46 99 12/17/18 13:34 99 12/17/18 13:32 99 Diagnostic Findings XR chest 1V portable CLINICAL HISTORY: 68 years-old Female presenting with Chest Pain. TECHNIQUE: Portable upright AP view of the chest was obtained. COMPARISON: 03/15/2015. FINDINGS: Atherosclerosis of the aortic arch. Cardiac silhouette normal in size. Bandlike opacity at the left lung base. No other focal opacity. No large effusion or pneumothorax. Degenerative changes of the thoracic spine. Upper abdomen normal. IMPRESSION: 1. Left basilar atelectasis or scarring. No convincing evidence of acute cardiopulmonary disease. Electronically signed by: Rodrick Reis M.D. 12/17/2018 2:05 PM Dictated: 12/17/18 1404 Transcribed: 12/17/18 1404
[2018-12-17] MEDS ORDERED: POTASSIUM CHLORIDE 20 MEQ TABCR PO ONE (17:45)
--- NOTE | 2018-12-17 18:23 | Emergency Department Note ---
Entered by Aaliyah Mejia acting as a scribe for History of Present Illness General Chief complaint: Cardiac Assessment Source: patient Mode of arrival: EMS Limitations: no limitations History of Present Illness Onset (ago): month(s) 1 Location: chest Pain Consistency: + other (episode) Exacerbated By: + movement (exertion) Associated symptoms: + denies other symptoms and + other (The patient denies diarrhea. ); no fever/chills and no nausea/vomiting The patient is a 68 white female w/ PMHx GERD, hypertension, hyperlipidemia, and diabetes who presents to the ED via EMS w/ CC of an episode of a cardiac assessment beginning 1 month ago. The patient presents from [facility]. Per EMS, the patient was having a cardiac echo completed due to shortness of breath that is exacerbated with exertion for the past month. During stress the patient experienced ischemic changes. Per report, Dr. Vela called Dr. Butts Cardiology- [facility]. The patient states that she is shaky at this time because she is diabetic and her sugars are getting low. The patient denies any pain at this time including nausea, vomiting, diarrhea, fevers, and chills. She denies a fa felicia history of cardiac disease. The patient states that she is a nonsmoker. She denies hemoptysis and prolonged immobilization. The patient notes that she is under emotional stress because her is currently admitted in the hospital. Home Medications Home Medications Medication Instructions Recorded Confirmed Type Klor-Con 10 1 tab PO DAILY 12/17/18 12/17/18 History Nasal [place]red (sodium chloride) 2 spray INTRANASAL BID PRN 12/17/18 12/17/18 History aspirin 81 mg PO UD 12/17/18 12/17/18 History cholecalciferol (vitamin D3) 1 cap PO DAILY 12/17/18 12/17/18 History famotidine 1 tab PO DAILY 12/17/18 12/17/18 History hydrochlorothiazide 12.5 mg PO DAILY 12/17/18 12/17/18 History insulin aspart U-100 6 units SC TID 12/17/18 12/17/18 History insulin detemir U-100 [Levemir 30 unit SUBCUT HS 12/17/18 12/17/18 History U-100 Insulin] metoprolol succinate 12.5 mg PO DAILY 12/17/18 12/17/18 History sertraline 100 mg PO DAILY 12/17/18 12/17/18 History sitagliptin [Januvia] 100 mg PO DAILY 12/17/18 12/17/18 History Allergies Allergy/AdvReac Type Severity Reaction Status Date / Time ibuprofen Allergy Severe Gastrointestinal Unverified 12/17/18 14:18 Upset Sulfa (Sulfonamide Allergy Severe Hives Unverified 12/17/18 14:18 Antibiotics) aspirin Allergy Unknown UNKNOWN Verified 12/17/18 14:18 caffeine Allergy Unknown . Unverified 12/17/18 14:18 morphine Allergy Unknown Unknown Unverified 12/17/18 14:18 NSAIDS (Non-Steroidal Allergy Unknown UNKNOWN Verified 12/17/18 14:18 Anti-Inflamma epinephrine AdvReac Severe pounding Unverified 12/17/18 14:18 heart Past Med/Surg History Medical History Dyspnea on exertion Abnormal cardiovascular stress test Dyslipidemia HTN (hypertension) Unstable angina pectoris Food impaction of esophagus (Acute) GERD (gastroesophageal reflux disease) (Chronic) DM (diabetes mellitus) (Chronic) Abdominal pain (Acute) Headache (Acute) Adverse reaction to drug (Acute) Food impaction of esophagus (Resolved) No pertinent family history Surgical History No pertinent past surgical history Family History Other No pertinent family history Social History Preferred Language: Indonesian Communication Ability: Effective Visual Impairment: No Limitations Hearing Ability: Normal Beliefs That Will Affect Care: None marital status: marital status details: Current Living Situation: Spouse Feels Safe at Home: Yes Smoking Status: Never smoker Hx Alcohol Use: No Hx Substance Use: No Review of Systems See HPI for pertinent positives & negatives. and A total of 10 systems reviewed and were otherwise negative Physical Exam Vital Signs Vital Signs - 24 hr 12/17/18 13:32 12/17/18 13:34 12/17/18 13:46 Temperature 36.7 C Temperature Source Oral Sepsis Recent Fever Within 48 Hours No Sepsis New/Unexplained Change in Mental Status No Sepsis Action Taken by Nursing No Action Required Pulse Rate 74 71 Pulse Rate from SpO2 Sensor 70 Respiratory Rate 22 23 Respiratory Effort / Characteristics Non-Labored Spontaneous Respiratory Depth Normal Blood Pressure 133/67 144/77 H Blood Pressure Mean 89 99 Pulse Oximetry 99 99 99 Oxygen Delivery Method Room Air Room Air Room Air 12/17/18 14:01 Temperature Temperature Source Sepsis Recent Fever Within 48 Hours Sepsis New/Unexplained Change in Mental Status Sepsis Action Taken by Nursing Pulse Rate 69 Pulse Rate from SpO2 Sensor 69 Respiratory Rate 21 Respiratory Effort / Characteristics Respiratory Depth Blood Pressure 114/78 Blood Pressure Mean 90 Pulse Oximetry 100 Oxygen Delivery Method GENERAL: Anxious in appearnace. well nourished, NAD, non-toxic. EYE EXAM: Normal conjunctiva. PERRL, no anisocoria and EOM's grossly intact w/o pain. OROPHARYNX: Moist mucus membranes. Grossly normal dentition. NECK: Supple, no nuchal rigidity, no adenopathy, non-tender. no signs of meningismus. LUNGS: Clear to auscultation. Normal chest wall mechanics. HEART: NSR, no MRG. ABDOMEN: Abdomen soft, non-tender, normo-active bowel sounds, no masses, no rebound or guarding. BACK: No CVA TTP. SKIN: No rashes and no bruising. UPPER EXTREMITIES: Upper extremities are grossly normal. LOWER EXTREMITIES: No pitting edema. No calf pain. Negative Homans'; sign. NEURO EXAM: A&O x3, cranial nerves II-XII grossly intact, normal speech, moves all 4 extremities on command w/o issue. Course 1320: Past medical records reviewed. The patient was evaluated in room B9. A complete history and physical examination was performed. 1359: I reviewed the patient's case with Dr. Butts Cardiology - [facility]. He will take the patient to the physical laboratory assistant. 1405: I reviewed the patient's case with Marylou Correia. She will evaluate the patient for further management. Consultations Consultation #1: [id number]: I reviewed the patient's case with Dr. Butts Cardiology - [facility]. He will take the patient to the physical laboratory assistant. Time: 13:59 Consultation #2: [id number]: I reviewed the patient's case with Marylou Correia. She will evaluate the patient for further management. Time: 14:05 Administered Medications Aspirin (Ecotrin Ectab) 81 mg PO [facility] Stop: 01/17/19 08:59 Last Admin: 12/18/18 08:23 Dose: 81 mg Documented by: [id number] Atorvastatin Calcium (Lipitor) [facility] [place] [facility] Stop: 01/17/19 08:59 Last Admin: 12/18/18 08:24 Dose: 40 mg Documented by: [id number] Hydrochlorothiazide (Hctz) 12.5 mg PO DAILY MAX Stop: 01/17/19 08:59 Last Admin: 12/18/18 08:23 Dose: 12.5 mg Documented by: [id number] Insulin Aspart (Novolog Flexpen) 0 units SC ACHS MAX Stop: 01/16/19 20:59 Last Admin: 12/18/18 08:24 Dose: 3 units Documented by: [id number] Cosigned by: [id number] Admin: 12/17/18 21:33 Dose: 4 units Documented by: [id number] Cosigned by: [id number] Metoprolol Succinate (Toprol Xl) 12.5 mg PO DAILY [facility] Stop: 01/17/19 08:59 Last Admin: 12/18/18 08:23 Dose: 12.5 mg Documented by: [id number] Nitroglycerin (Nitrostat) 0.4 mg SL UD PRN PRN Reason: Chest Pain Stop: 01/16/19 13:25 Last Admin: 12/17/18 20:38 Dose: 0.4 mg Documented by: [id number] Admin: 12/17/18 20:28 Dose: 0.4 mg Documented by: [id number] Admin: 12/17/18 20:20 Dose: 0.4 mg Documented by: [id number] Pantoprazole Sodium (Protonix) 40 mg PO QAM [facility] Stop: 01/16/19 16:29 Last Admin: 12/18/18 08:24 Dose: 40 mg Documented by: [id number] Admin: 12/17/18 17:00 Dose: 40 mg Documented by: [id number] Sertraline HCl (Zoloft) 100 mg PO DAILY [facility] Stop: 01/17/19 08:59 Last Admin: 12/18/18 08:23 Dose: 100 mg Documented by: [id number] Ticagrelor (Brilinta) 90 mg PO BID [facility] Stop: 01/16/19 20:59 Last Admin: 12/18/18 08:24 Dose: 90 mg Documented by: [id number] Admin: 12/17/18 20:25 Dose: 90 mg Documented by: [id number] Vitamin D (Vitamin D3) 1,000 units PO DAILY [facility] Stop: 01/17/19 08:59 Last Admin: 12/18/18 08:23 Dose: 1,000 units Documented by: [id number] Discontinued Medications Aspirin (Ecotrin Ectab) 243 mg PO NOW STA Stop: 12/17/18 14:01 Last Admin: 12/17/18 14:32 Dose: 243 mg Documented by: [id number] Aspirin (Aspirin Chew) Confirm Administered Dose 243 mg .ROUTE .STK-MED ONE Stop: 12/17/18 14:20 Last Admin: 12/17/18 15:42 Dose: Not Given Documented by: [id number] Dextrose (Dextrose 50%) 50 ml IV NOW STA Stop: 12/17/18 13:30 Last Admin: 12/17/18 13:40 Dose: Not Given Documented by: [id number] Fentanyl Citrate (Fentanyl Citrate) Confirm Administered Dose 100 mcg .ROUTE .STK-MED ONE Stop: 12/17/18 14:13 Last Increment: 12/17/18 15:40 Dose: 37.5 mcg Documented by: [id number] Heparin Sodium (Porcine) (Heparin Iv Bolus ([employer] Use Only)) Confirm Administered Dose 10,000 units .ROUTE .STK-MED ONE Stop: 12/17/18 14:13 Last Admin: 12/17/18 15:41 Dose: 13,000 units Documented by: [id number] Heparin Sodium/Sodium Chloride (Heparin/Nss 1000 Unit/500ml Flush Bag) Confirm Administered Dose 3,000 units IV .STK-MED ONE Stop: 12/17/18 14:13 Last Admin: 12/17/18 15:41 Dose: 3,000 units Documented by: [id number] Dextrose/Sodium Chloride (D5w And 1/2nss) 1,000 mls @ 100 mls/hr IV .Q10H [facility] Stop: 12/18/18 00:14 Last Admin: 12/17/18 16:30 Dose: Not Given Documented by: [id number] Sodium Chloride (Nss 1000ml) 1,000 mls @ 100 mls/hr IV .Q10H MAX Stop: 12/17/18 20:59 Last Infusion: 12/18/18 06:52 Dose: 0 mls/hr Documented by: [id number] Infusion: 12/18/18 00:21 Dose: 0 mls/hr Documented by: [id number] Admin: 12/17/18 17:01 Dose: 100 mls/hr Documented by: [id number] Potassium Phosphate 15 mmol/ (Sodium Chloride) 255 mls @ 88 mls/hr IV ONE ONE Stop: 12/18/18 03:38 Last Infusion: 12/18/18 04:11 Dose: 0 mls/hr Documented by: [id number] Admin: 12/18/18 01:01 Dose: 88 mls/hr Documented by: [id number] Insulin Detemir (Levemir Flextouch) 10 units SC 2100 ONE Stop: 12/17/18 21:01 Last Admin: 12/17/18 21:14 Dose: Not Given Documented by: [id number] Midazolam HCl (Versed) Confirm Administered Dose 2 mg .ROUTE .STK-MED ONE Stop: 12/17/18 14:13 Last Admin: 12/17/18 15:40 Dose: 2 mg Documented by: [id number] Nicardipine HCl (Cardene) Confirm Administered Dose 25 mg .ROUTE .STK-MED ONE Stop: 12/17/18 14:13 Last Admin: 12/17/18 15:40 Dose: 25 mg Documented by: [id number] Potassium Chloride (K Lorenzo / Wtr) Confirm Administered Dose 10 meq IV .STK-MED ONE Stop: 12/17/18 14:32 Last Admin: 12/17/18 14:33 Dose: 10 meq Documented by: [id number] Potassium Chloride (Klor-Con M20) 40 meq PO ONE ONE Stop: 12/17/18 17:46 Last Admin: 12/17/18 18:03 Dose: 40 meq Documented by: [id number] Ticagrelor (Brilinta) Confirm Administered Dose 180 mg PO .STK-MED ONE Stop: 12/17/18 15:39 Last Admin: 12/17/18 16:04 Dose: 180 mg Documented by: [id number] Medical Decision Making Differential Diagnosis Differential diagnoses: Acute coronary syndrome, myocardial infarction, pericarditis, pulmonary embolus, aortic dissection, pneumonia, pneumothorax, musculoskeletal, shingles, esophageal. Medical Records Attestation: I reviewed the patient's medical records. Home Medications Current Medication List: was personally reviewed by me Laboratory Data Attestation: I reviewed the patient's lab results. Result diagrams: 12/18/18 06:57 12/18/18 06:57 Lab Results 12/17/18 12/17/18 12/17/18 Range/Units 13:28 13:30 13:30 WBC 8.96 (4.8-10.8) K/uL RBC 4.80 (4.2-5.4) M/uL Hgb 13.9 (12.0-16.0) g/dL Hct 40.4 (37-47) % MCV 84.2 (80-100) fL MCH 29.0 (25-34) pg MCHC 34.4 (32-36) g/dL RDW Std Deviation 40.4 (36.4-46.3) fL RDW Coeff of Abbie 13.3 (11.5-14.5) % Plt Count 236 (130-400) K/uL MPV 10.9 H (7.4-10.4) fL Immature Gran % (Auto) 0.3 % Neut % (Auto) 68.3 % Lymph % (Auto) 22.9 % [place] % (Auto) 6.1 % Eos % (Auto) 2.0 % Baso % (Auto) 0.4 % Immature Gran # (Auto) 0.03 H (0.00-0.02) K/uL Neut # (Auto) 6.11 (1.4-6.5) K/uL Lymph # (Auto) 2.05 (1.2-3.4) K/uL [place] # (Auto) 0.55 (0.11-0.59) K/uL Eos # (Auto) 0.18 (0-0.5) K/uL Baso # (Auto) 0.04 (0-0.2) K/uL PT (9.0-12.0) Seconds INR (0.9-1.1) APTT (21.0-31.0) Seconds PTT Ratio Sodium 138 (136-145) mmol/L Potassium 2.9 L (3.5-5.1) mmol/L Chloride 104 (98-107) mmol/L Carbon Dioxide 25 (21-32) mmol/L Anion Gap 9.0 (3-11) BUN 18 (7-18) mg/dl Creatinine 0.69 (0.6-1.2) mg/dl Est Cr Clr Drug Dosing 81.7 ml/min Est GFR ( Amer) 102.2 Est GFR (Non-Af Amer) 88.2 BUN/Creatinine Ratio 25.8 H (10-20) Glucose 86 (70-99) mg/dl POC Glucose 87 (70-99) Calcium 9.6 (8.5-10.1) mg/dl Phosphorus 2.0 L (2.5-4.9) mg/dl Magnesium 2.0 (1.8-2.4) mg/dl Total Bilirubin 0.5 (0.2-1) mg/dl AST 8 L (15-37) U/L ALT 13 (12-78) U/L Alkaline Phosphatase 107 (45-117) U/L Troponin I < 0.015 (0-0.045) ng/ml Total Protein 7.5 (6.4-8.2) gm/dl Albumin 3.9 (3.4-5.0) gm/dl Globulin 3.6 (2.5-4.0) gm/dl Albumin/Globulin Ratio 1.1 (0.9-2) Lipase 93 (73-393) U/L 12/17/18 12/17/18 Range/Units 13:30 14:17 WBC (4.8-10.8) K/uL RBC (4.2-5.4) M/uL Hgb (12.0-16.0) g/dL Hct (37-47) % MCV (80-100) fL MCH (25-34) pg MCHC (32-36) g/dL RDW Std Deviation (36.4-46.3) fL RDW Coeff of Abbie (11.5-14.5) % Plt Count (130-400) K/uL MPV (7.4-10.4) fL Immature Gran % (Auto) % Neut % (Auto) % Lymph % (Auto) % [place] % (Auto) % Eos % (Auto) % Baso % (Auto) % Immature Gran # (Auto) (0.00-0.02) K/uL Neut # (Auto) (1.4-6.5) K/uL Lymph # (Auto) (1.2-3.4) K/uL [place] # (Auto) (0.11-0.59) K/uL Eos # (Auto) (0-0.5) K/uL Baso # (Auto) (0-0.2) K/uL PT 9.8 (9.0-12.0) Seconds INR 1.0 (0.9-1.1) APTT 23.7 (21.0-31.0) Seconds PTT Ratio 0.9 Sodium (136-145) mmol/L Potassium (3.5-5.1) mmol/L Chloride (98-107) mmol/L Carbon Dioxide (21-32) mmol/L Anion Gap (3-11) BUN (7-18) mg/dl Creatinine (0.6-1.2) mg/dl Est Cr Clr Drug Dosing ml/min Est GFR ( Amer) Est GFR (Non-Af Amer) BUN/Creatinine Ratio (10-20) Glucose (70-99) mg/dl POC Glucose 91 (70-99) Calcium (8.5-10.1) mg/dl Phosphorus (2.5-4.9) mg/dl Magnesium (1.8-2.4) mg/dl Total Bilirubin (0.2-1) mg/dl AST (15-37) U/L ALT (12-78) U/L Alkaline Phosphatase (45-117) U/L Troponin I (0-0.045) ng/ml Total Protein (6.4-8.2) gm/dl Albumin (3.4-5.0) gm/dl Globulin (2.5-4.0) gm/dl Albumin/Globulin Ratio (0.9-2) Lipase (73-393) U/L Imaging Data Radiologist's Impression: Radiology results as stated below per my review and the radiologist's interpretation: XR chest 1V portable CLINICAL HISTORY: 68 years-old Female presenting with Chest Pain. TECHNIQUE: Portable upright AP view of the chest was obtained. COMPARISON: 03/15/2015. FINDINGS: Atherosclerosis of the aortic arch. Cardiac silhouette normal in size. Bandlike opacity at the left lung base. No other focal opacity. No large effusion or pneumothorax. Degenerative changes of the thoracic spine. Upper abdomen normal. IMPRESSION: 1. Left basilar atelectasis or scarring. No convincing evidence of acute cardiopulmonary disease. Electronically signed by: Rodrick Reis M.D. 12/17/2018 2:05 PM Dictated: 12/17/18 1404 Transcribed: 12/17/18 140 ECG Data Attestation: I personally reviewed and interpreted this ECG as follows: Indication: chest pain Rate (beats per minute): 72 Rhythm: normal sinus Findings: + other (normal intervals, normal axis) and + T-wave inversion (anteriorly) Comparison ECG Date: from (12/20/2016) Change: the following changes noted (TWI is new) Blood Pressure Blood Pressure Findings: Normal blood pressure MDM Narrative The patient is a 68 white female w/ PMHx GERD, hypertension, hyperlipidemia, and diabetes who presents to the ED via EMS w/ CC of an episode of a cardiac assessment beginning 1 month ago. Patient was seen and evaluated at the bedside after being seen and evaluated by the resident physician. The patient had been a referral from the outpatient cardiology office is given the concern for wall motion abnormality seen on a cardiac patient was also emergently seen by the detail supervisor. Patient did have blood work completed and the patient was subsequently taken to the andrew terization lab. The resident physician did speak with the on-call hospitalist discussing the patient's admission. Patient was admitted to the medicine service. Impression & Plan CEBALLOS (dyspnea on exertion), Abnormal echocardiogram Discharge Plan Visit Data Chief Complaint: Cardiac Assessment ED Provider: Rock Dowell ED Midlevel Provider: Cl Grayson Discharge Problem: CEBALLOS (dyspnea on exertion), Abnormal echocardiogram Patient Disposition: Being Evaluated by Hospitalist Discharge Instructions Interventions: ED Discharge Assessment Last Done: 12/17/18 14:22 The scribe's documentation has been prepared under my direction and personally reviewed by me in its entirety. I confirm that the note above accurately reflects all work, treatment, procedures, and medical decision making performed by me.
[2018-12-17] MEDS ORDERED: CARBOHYDRATES FOR HYPOGLYCEMIA PO PRN (19:26)
[2018-12-17] MEDS ORDERED: GLUCOSE 40% GEL 15 GM TUBE PO PRN (19:26)
[2018-12-17] MEDS ORDERED: DEXTROSE 50% 50 ML SYRINGE IV PRN (19:26)
[2018-12-17] MEDS ORDERED: GLUCOSE 10 TABS/TUBE PO PRN (19:26)
[2018-12-17] MEDS ORDERED: GLUCAGON FOR INJ 1 MG VIAL SQ PRN (19:26)
[2018-12-17] MEDS: NITROGLYCERIN SL 0.4 MG/TAB TAB SL PRN ×3 (20:20→20:38)
[2018-12-17] MEDS: TICAGRELOR 90 MG TAB PO SCH (20:25)
[2018-12-17] MEDS ORDERED: INSULIN DETEMIR FLEXPEN/FLEX TOUCH 100 UNITS/ML 3ML SC ONE (21:00)
[2018-12-17] MEDS: INSULIN ASPART 100 UNITS/ML 3 ML PEN SC SCH (21:33)
[2018-12-18] MEDS ORDERED: POTASSIUM PHOS 3 MMOL/1 ML INFUSION IV ONE (00:30)
[2018-12-18] MEDS ORDERED: POTASSIUM PHOSPHATE 15 MMOL in SODIUM CHLORIDE 0.9% 250 ML IV ONE (00:45)
[2018-12-18 07:12] LABS: Basophils # (auto) 0.02 K/uL (0-0.2); Basophils % (auto) 0.4 %; Eosinophils # (auto) 0.17 K/uL (0-0.5); Hematocrit (blood only) 38.6 % (37-47); Hemoglobin 13.4 g/dL (12.0-16.0); Immature Granulocytes # (auto) 0.02 K/uL (0.00-0.02); Immature Granulocytes % (auto) 0.4 %; Lymphocytes # (auto) 1.11 K/uL (1.2-3.4); Lymphocytes % (auto) 19.5 %; Mean Corpuscular Hgb Conc 34.7 g/dL (32-36); Mean Corpuscular Volume 83.4 fL (80-100); Mean Platelet Volume 11.1 fL (7.4-10.4); Monocytes # (auto) 0.36 K/uL (0.11-0.59); Monocytes % (auto) 6.3 %; Neutrophils # (auto) 4.02 K/uL (1.4-6.5); Neutrophils % (auto) 70.4 %; Platelet Count 177 K/uL (130-400); RDW Coefficient of Variation 13.2 % (11.5-14.5); RDW Standard Deviation 39.8 fL (36.4-46.3); Red Blood Count 4.63 M/uL (4.2-5.4)
[2018-12-18 07:48] LABS: BUN Creatinine Ratio 21.3 (10-20); Calcium 9.1 mg/dl (8.5-10.1); Creatinine Clr Calc Pharmacy 81.7 ml/min; Est GFR (African American) 102.2; Est GFR (Non-African American) 88.2; Potassium 4.2 mmol/L (3.5-5.1)
--- NOTE | 2018-12-18 08:09 | Hospitalist Progress Note ---
Date of Service December 18, 2018 Assessment & Plan (1) Unstable angina pectoris: (2) Abnormal cardiovascular stress test: Was sent from cardiology clinic after abnormal exercise stress echo which was stopped after 4 minutes due to symptoms suggestive of angina including exertional shortness of breath, chest pressure, EKG changes with ST depression in inferior and lateral lead and ST elevation in leads aVR, V1. Was transferred to the ER and for cardiac cath -Status post cardiac cath on 12/17/18 that showed 100% LAD occlusion- JULISSA X 1 placed in mid LAD -Continue with aspirin 81 mg and ticagrelor 90 mg twice daily (dual anti platelet) at least for a year -Started on crestor 20 mg q HS -Continue with Toprol XL 12.5 mg daily -Cardiology on board. Consulted cardiac rehab (3) HTN (hypertension): Stable -Continue metoprolol 12.5 mg daily -On HCTZ at home which is on hold now (4) Dyslipidemia: -Lipid panel= LDL 169 -Started on crestor 20 mg q HS this admission (5) DM (diabetes mellitus): Uncontrolled with Recent hemoglobin A1c 8.7 on 10/12 Held diabetes meds -ISS Levemir -Life style modifications counseling done DVT px =- SQ heparin will be started CODE STATUS FULL CODE DISPOSITION Medical mx in progress Defer discharge plan to Cardiology Subjective Patient did have an episode of chest pain yesterday which was relieved after 3 nitroglycerin tabs. Today morning when she walked to the bathroom she had chest pain for few seconds which resolved by itself Denies any chest pain currently. No shortness of breath, fever, chills, cough, nausea, vomiting, dizziness, sweating, palpitations. No events Physical Exam Physical Exam: GENERAL- AAOX3, No acute distress LUNGS- Air entry bilaterally equal. No rales, rhonchi, crackles, wheezes heard. HEART- Regular rate and rhythm. No murmurs EXTREMITIES- S/P Right heart cath + Good peripheral pulses, no edema Results & Data Vital Signs (Past 12 Hours) Vital Signs Temp Pulse Resp BP Pulse Ox 12/18/18 07:21 36.8 C 62 18 113/67 97 12/18/18 03:46 36.8 C 64 18 100/62 96 12/17/18 23:00 36.9 C 66 18 112/67 95 12/17/18 21:33 68 18 122/70 96 12/17/18 20:48 68 18 116/69 97 12/17/18 20:36 67 18 114/68 97 12/17/18 20:33 36.6 C 71 18 132/76 96 12/17/18 20:26 70 18 121/68 96 12/17/18 20:20 71 18 146/79 H 100
[2018-12-18] MEDS: INSULIN ASPART 100 UNITS/ML 3 ML PEN SC SCH ×3 (08:24→17:03)
[2018-12-18] MEDS: TICAGRELOR 90 MG TAB PO SCH (08:24)
[2018-12-18] MEDS: PANTOprazole 40 MG TAB PO SCH (08:24)
[2018-12-18] MEDS ORDERED: hydroCHLOROthiazide 25 MG TAB PO SCH (09:00)
[2018-12-18] MEDS ORDERED: CHOLECALCIFEROL 1,000 UNITS TAB PO SCH (09:00)
[2018-12-18] MEDS ORDERED: ASPIRIN 81 MG ECTAB PO SCH (09:00)
[2018-12-18] MEDS ORDERED: METOPROLOL SUCC 25MG EXT REL TAB PO SCH (09:00)
[2018-12-18] MEDS ORDERED: ATORVASTATIN 40 MG TAB PO SCH (09:00)
[2018-12-18] MEDS ORDERED: SERTRALINE HCL 100 MG TABLET PO SCH (09:00)
[2018-12-18] MEDS ORDERED: HEPARIN SOD 5,000 UNIT/0.5 ML VIAL SQ SCH (14:00)
--- NOTE | 2018-12-18 15:27 | Cardiology Progress Note ---
Date of Service December 18, 2018 Assessment & Plan (1) Unstable angina pectoris: Patient underwent successful coronary intervention of the occluded left anterior descending noted on cardiac catheterization yesterday. No recurrent symptoms today tolerated procedure well Brilinta and atorvastatin added to prehospital medical regimen Will need close clinical follow-up as outpatient cardiac rehab referral (2) Abnormal cardiovascular stress test: Patient was per HPI had substantially abnormal stress testing today with the EKG and symptoms relieved by nitroglycerin. . (3) Dyspnea on exertion: (4) HTN (hypertension): Patient is already treated with hydrochlorothiazide on a chronic basis outside hospital. New metoprolol succinate 12.5 milligrams risk recently added on 12/03/2018, and this will be titrated GABRIELLE-inhibitor or angiotensin receptor dario will be added as tolerated. (5) Dyslipidemia: Recent significant dyslipidemia noted with total cholesterol 275 LDL cholesterol 209. Statin therapy will be initiated hospitalized. Placed on atorvastatin 40 mill grams per day with patient noting prior difficulties with statin intolerance Intolerance occurs once again will refer for Praluent or Repatha Subjective Transient chest ache last night without EKG changes. Amatory in the room today without difficulty. Notes no bleeding difficulty, no dizziness or lightheadedness Physical Exam Constitutional: WD/WN, vitals as above Eyes: PERRL, conjunctivae normal, anicteric sclerae ENMT: Mallampati Class: II Neck: trachea midline, no thyromegaly Respiratory: normal respiratory effort, lungs clear to auscultation Cardiovascular: Rate/Rhythm: regular rate and regular rhythm Heart Sounds: normal S1, normal S2 and + murmur (Grade 1/6 systolic); no gallop and no cardiac rub Vessels: no JVD, no carotid bruit, no abdominal aortic bruit and no femoral bruit Extremities: no edema Gastrointestinal (Abdomen): normal bowel sounds, soft, nontender, no hepatosplenomegaly Inspection/Auscultation: abdomen normal to inspection Percussion/Palpation: no abdominal mass and no abdominal aortic enlargement Musculoskeletal: no cyanosis or clubbing, extremities motor strength 5/5 Right radial access site healed well Neurologic: PERRL, EOMI, accommodation nl, no face palsy, no dysarthria Psychiatric: A+Ox3, euthymic affect Results & Data Vital Signs (Past 12 Hours) Vital Signs Temp Pulse Pulse Pulse Resp BP Pulse Ox 12/18/18 15:09 68 12/18/18 15:07 36.8 C 68 18 110/70 97 12/18/18 11:24 36.9 C 61 20 116/72 97 12/18/18 08:00 68 12/18/18 07:21 36.8 C 62 18 113/67 97 12/18/18 03:46 36.8 C 64 18 100/62 96 Laboratory Results Laboratory Results - last 24 hr 12/17/18 12/17/18 12/17/18 13:28 15:24 16:26 WBC RBC Hgb Hct MCV MCH MCHC RDW Std Deviation RDW Coeff of Abbie Plt Count MPV Immature Gran % (Auto) Neut % (Auto) Lymph % (Auto) [place] % (Auto) Eos % (Auto) Baso % (Auto) Immature Gran # (Auto) Neut # (Auto) Lymph # (Auto) [place] # (Auto) Eos # (Auto) Baso # (Auto) Activ Coag Time Kaolin 180 H Sodium Potassium Chloride Carbon Dioxide Anion Gap BUN Creatinine Est Cr Clr Drug Dosing Est GFR ( Amer) Est GFR (Non-Af Amer) BUN/Creatinine Ratio Glucose POC Glucose 87 99 Calcium Phosphorus Triglycerides Cholesterol LDL Cholesterol, Calc VLDL Cholesterol, Calc HDL Cholesterol Cholesterol/HDL Ratio 12/17/18 12/18/18 12/18/18 20:16 06:57 06:57 WBC 5.70 RBC 4.63 Hgb 13.4 Hct 38.6 MCV 83.4 MCH 28.9 MCHC 34.7 RDW Std Deviation 39.8 RDW Coeff of Abbie 13.2 Plt Count 177 MPV 11.1 H Immature Gran % (Auto) 0.4 Neut % (Auto) 70.4 Lymph % (Auto) 19.5 [place] % (Auto) 6.3 Eos % (Auto) 3.0 Baso % (Auto) 0.4 Immature Gran # (Auto) 0.02 Neut # (Auto) 4.02 Lymph # (Auto) 1.11 L [place] # (Auto) 0.36 Eos # (Auto) 0.17 Baso # (Auto) 0.02 Activ Coag Time Kaolin Sodium 138 Potassium 4.2 D Chloride 107 Carbon Dioxide 24 Anion Gap 7.0 BUN 15 Creatinine 0.69 Est Cr Clr Drug Dosing 81.7 Est GFR ( Amer) 102.2 Est GFR (Non-Af Amer) 88.2 BUN/Creatinine Ratio 21.3 H Glucose 217 H POC Glucose 158 H Calcium 9.1 Phosphorus 4.0 D Triglycerides 189 H Cholesterol 241 H LDL Cholesterol, Calc 169 VLDL Cholesterol, Calc 38 HDL Cholesterol 34 Cholesterol/HDL Ratio 7 12/18/18 12/18/18 07:19 11:28 WBC RBC Hgb Hct MCV MCH MCHC RDW Std Deviation RDW Coeff of Abbie Plt Count MPV Immature Gran % (Auto) Neut % (Auto) Lymph % (Auto) [place] % (Auto) Eos % (Auto) Baso % (Auto) Immature Gran # (Auto) Neut # (Auto) Lymph # (Auto) [place] # (Auto) Eos # (Auto) Baso # (Auto) Activ Coag Time Kaolin Sodium Potassium Chloride Carbon Dioxide Anion Gap BUN Creatinine Est Cr Clr Drug Dosing Est GFR ( Amer) Est GFR (Non-Af Amer) BUN/Creatinine Ratio Glucose POC Glucose 223 H 232 H Calcium Phosphorus Triglycerides Cholesterol LDL Cholesterol, Calc VLDL Cholesterol, Calc HDL Cholesterol Cholesterol/HDL Ratio ECG Additional Comments: EKG last evening with chest discomfort, no acute change 17-DEC-2018 20:13:44 [facility]-PCU ROUTINE RETRIEVAL Normal sinus rhythm Septal infarct (cited on or before 17-DEC-2018) Abnormal ECG When compared with ECG of 17-DEC-2018 13:21, Questionable change in initial forces of Anterior leads Nonspecific T wave abnormality no longer evident in Anterior leads
--- NOTE | 2018-12-18 16:56 | Discharge Summary ---
Date of Service December 18, 2018 Admission HPI Per Admitting Provider 68-year-old female with past medical history of type 2 diabetes, hypertension, dyslipidemia, osteoarthritis, major depressive disorder, esophageal reflux was sent from cardiology clinic after abnormal exercise stress echo. Patient said that lately she was having on and off exertional chest discomfort associated with shortness of breath. She had an EKG done as an outpatient back in October that was abnormal. 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 She said that she was then scheduled for exercise stress echo today. Exercise stress echo was stopped after about 4 minutes due to symptoms suggestive of angina including exertional shortness of breath, chest pressure and EKG changes with ST depression in the inferior and lateral lead and ST elevation in leads aVR and V1. She was transferred to the ER and for cardiac cath. Cardiac cath done today showed 100% occlusion of the LAD and single drug- eluting stent placed. Currently patient said that she feels fine. Currently denies any chest pain, palpitation, dizziness, shortness of breath, weakness and numbness. Principal Diagnosis 1. Unstable angina 2. S/P Cardiac cath with PCI- JULISSA x 1 in LAD Secondary diagnoses on discharge 1. Hypertension 2. Dyslipidemia Discharge Exam GENERAL- AAOX3, No acute distress LUNGS- Air entry bilaterally equal. No rales, rhonchi, crackles, wheezes heard. HEART- Regular rate and rhythm. No murmurs EXTREMITIES- S/P Right heart cath + Good peripheral pulses, no edema Discharge Data Allergies Allergy/AdvReac Type Severity Reaction Status Date / Time ibuprofen Allergy Severe Gastrointestinal Unverified 12/17/18 14:18 Upset Sulfa (Sulfonamide Allergy Severe Hives Unverified 12/17/18 14:18 Antibiotics) aspirin Allergy Unknown UNKNOWN Verified 12/17/18 14:18 caffeine Allergy Unknown . Unverified 12/17/18 14:18 morphine Allergy Unknown Unknown Unverified 12/17/18 14:18 NSAIDS (Non-Steroidal Allergy Unknown UNKNOWN Verified 12/17/18 14:18 Anti-Inflamma epinephrine AdvReac Severe pounding Unverified 12/17/18 14:18 heart Consultations 12/17/18 15:51 Consult Cardiac Rehabilitation Routine 12/17/18 17:31 Consult Cardiology Routine Procedures Performed Operation Date: 12/17/18 14:15 Actual Procedures s Cineradiography w/Routine Exam - Percy Butts MD p Cath, Left with Cors and Vent - Percy Butts MD s Drug Eluting Stent SGl Vessel - Wilbert Curiel MD Ordered Studies 12/17/18 14:04 CL Cath Imgs for PACS use only Stat Hospital Course (1) Unstable angina pectoris: (2) Abnormal cardiovascular stress test: Was sent from cardiology clinic after abnormal exercise stress echo which was stopped after 4 minutes due to symptoms suggestive of angina including exertional shortness of breath, chest pressure, EKG changes with ST depression in inferior and lateral lead and ST elevation in leads aVR, V1. Was transferred to the ER and for cardiac cath -Status post cardiac cath on 12/17/18 that showed 100% LAD occlusion- JULISSA X 1 placed in mid LAD -Continue with aspirin 81 mg and ticagrelor 90 mg twice daily (dual anti platelet) at least for a year -Started on crestor 20 mg q HS (Intolerant in past)- monitor response -Continue with Toprol XL 12.5 mg daily -Cardiology on board. Consulted cardiac rehab (3) HTN (hypertension): Stable -Continue metoprolol 12.5 mg daily -On HCTZ at home which will be restarted on discharge (4) Dyslipidemia: -Lipid panel= LDL 169 -Started on crestor 20 mg q HS this admission -Intolerant to statins in past. Will try and needs to be followed up outpatient (5) DM (diabetes mellitus): Uncontrolled with Recent hemoglobin A1c 8.7 on 10/12 Held diabetes meds -ISS, Levemir -Life style modifications counseling done DVT px =- SQ heparin will be started CODE STATUS FULL CODE DISPOSITION Patient is eager to be discharged Cleared by cardiology for discharge Okay to discharge home today Total Time Total Time Spent Total Time Spent (In Minutes): 38 minute Discharge Plan Discharge Items Patient Disposition: Home - Self-Care Reason For Visit: [place] Discharge Diagnosis: Unstable angina S/P Cardiac cath- one stent placed in LAD Discharge Goals: Decrease discomfort and Improve disease control Activity: Resume your previous activity Lifting: No more than 10 pounds Non-emergency contact: Primary Care Provider and [employer] Service Manager Call non-emergency contact if: your symptoms worsen Follow-up/Referrals: Michele Valenzuela DO [Primary Care Provider] - 12/21/18 12:45 pm Percy Butts MD [Physician] - (Call for appt date and time) Diet: Heart Healthy Addtl Provider Instructions: MEDICATION CHANGES 1. New medicationBrilinta 90 mg twice a day (Continue with ASA, Brilinta uninterrupted at least for 1 year) 2. New medicationrosuvastatin 20 mg at bedtime Consider ACEI/ARB low dose outpatient Prescriptions: New nitroglycerin [Nitrostat] 0.4 mg Tablet, Sublingual 0.4 mg sublingual UD PRN (Reason: chest pain) Qty: 30 RF: 0 Brilinta 90 mg Tablet 90 mg PO BID 30 Days Qty: 60 RF: 0 rosuvastatin 20 mg tablet 20 mg PO HS Qty: 30 RF: 0 Continued sertraline 100 mg tablet 100 mg PO DAILY RF: 0 aspirin 81 mg Tablet,Delayed Release (Dr/Ec) 81 mg PO UD RF: 0 hydrochlorothiazide 12.5 mg capsule 12.5 mg PO DAILY RF: 0 Levemir U-100 Insulin 100 unit/mL solution 30 unit subcut HS RF: 0 Januvia 100 mg tablet 100 mg PO DAILY RF: 0 metoprolol succinate 25 mg Tablet Extended Release 24 Hr 12.5 mg PO DAILY RF: 0 Klor-Con 10 10 meq 1 tab PO DAILY RF: 0 Nasal [place] (sodium chloride) 2 spray intranasal BID PRN (Reason: Nasal Congestion) RF: 0 cholecalciferol (vitamin D3) 2,000 unit 1 cap PO DAILY RF: 0 famotidine 20 mg 1 tab PO DAILY RF: 0 insulin aspart U-100 6 unit 6 units SC TID RF: 0 Stand-Alone Forms: [facility] Discharge Orders: Discharge Order (Routine); Ordered 12/18/18 Ordered By: Brianna Saleh Admission Data Admit Date/Time: 12/17/18 14:28 Attending Provider: Brianna Saleh Admit Provider: Percy Butts Primary Care Provider: Michele Valenzuela Other Providers: Percy Butts ; Jose Celeste Service: Telemetry
== END 2018-12-18 17:52 | disposition home or self-care (01) ==
LOC: 2S 13:19 → ED 13:19 → SUATTDRO 14:28
DX: Z88.8 Allergy status to other drugs, medicaments and biological substances; Z88.5 Allergy status to narcotic agent; I10 Essential (primary) hypertension; Z88.2 Allergy status to sulfonamides; Z79.4 Long term (current) use of insulin; E78.5 Hyperlipidemia, unspecified; K21.9 Gastro-esophageal reflux disease without esophagitis; M19.90 Unspecified osteoarthritis, unspecified site; Z88.6 Allergy status to analgesic agent; Z79.899 Other long term (current) drug therapy; I25.119 Atherosclerotic heart disease of native coronary artery with unspecified angina pectoris; E11.9 Type 2 diabetes mellitus without complications